=== PATIENT | male | born 1960 | race Caucasian/White ===

== ENCOUNTER 2019-06-08 11:44 | Emergency (ER) | payer BC ==
[~2019-06-08] VITALS: Ht 182.9 cm; Wt 111.4 kg
[2019-06-08 11:44] VITALS: TEMP 97.8
[~2019-06-08 11:44] MED LIST: NAPROSYN500 MG PO; NO HOME MEDICATIONS
[2019-06-08 12:58] VITALS: BP 134/93; PULSE 70
== END 2019-06-08 13:05 | disposition home or self-care (01) ==
LOC: COL.ER 11:44
DX: S83.411A Sprain of medial collateral ligament of right knee, initial encounter (principal); Z98.890 Other specified postprocedural states; W01.0XXA Fall on same level from slipping, tripping and stumbling without subsequent striking against object, initial encounter; Y92.512 Supermarket, store or market as the place of occurrence of the external cause
CPT/HCPCS: L1846

== ENCOUNTER → 2019-08-19 | Outpatient (CLI) | payer BC | LOC: COL.VAS 12:19 | DX: M79.661 Pain in right lower leg (principal) ==